=== PATIENT | male | born 1955 | race Caucasian/White ===

== ENCOUNTER 2017-07-01 07:00 | Day surgery (SDC) | payer MEDICAID ==
[2017-06-29 08:26] VITALS: BMI 29.9
[~2017-07-01 07:00] MED LIST: LACTATED RINGERS 1,000 ML IV SCH; MOXIFLOXACIN HCL 0.5% DROPS 3 ML BTL OP ONE; TETRACAINE 0.5% OPHTH (PF) DROPS 4 ML BTL OP ONE; TIMOLOL 0.5% OPHTH DROPS 5 ML BTL OP ONE
[2017-07-01] MEDS: CYCLOPENTOLATE 1% OPHTH SOLN 2 ML BTL OP ONE ×3 (08:02→08:15)
[2017-07-01 08:04] VITALS: TEMP 97.7
[2017-07-01] MEDS: PHENYLEPHRINE 2.5% OPHTH DRP 2ML OP NR ×3 (08:05→08:19)
[2017-07-01] MEDS ORDERED: LIDOCAINE 1% 20 ML VIAL (10MG/ML) FOR IV START INTRADERMA ONE (08:16)
[2017-07-01] MEDS ORDERED: fentaNYL (PF) 50 MCG/ML 2 ML AMP ONE (09:02)
[2017-07-01] MEDS ORDERED: MIDAZOLAM 2 MG/2 ML VIAL ONE (09:02)
[2017-07-01] MEDS ORDERED: BALANCED SALT IRRIG SOLN COMB2 15 ML IRRIG.SOLN INTRAOCULA ONE (09:03)
[2017-07-01] MEDS ORDERED: LIDOCAINE 1% (PF) 10MG/ML VIAL MISCELLANE ONE (09:04)
[2017-07-01] MEDS ORDERED: DUOVISC KIT (GREEN BOX) INTRAOCULA ONE (09:04)
[2017-07-01] MEDS ORDERED: EPINEPHrine (PF) 0.3 ML in BALANCED SALT IRRIG SOLN COMB2 500 ML IRRIGATION ONE (09:08)
[2017-07-01] MEDS ORDERED: EPINEPHrine (PF) 1 MG/ML AMP MISCELLANE ONE (09:16)
--- NOTE | 2017-07-01 09:41 | P.OP ---
Date of Procedure: 07/01/17 Preoperative Diagnosis: PXS & 1+NS & glc moderate Postoperative Diagnosis: same Procedure(s) Performed: iStent implant and PIOL, OS Implants: iStent [id number] & PCB00 19.00 Anesthesia: MAC Surgeon: Ayo Flores Estimated Blood Loss (ml): 0 Pathology: none sent Condition: stable Disposition: same day Indications for Procedure: PXS glaucoma Operative Findings: no complications
[2017-07-01 10:33] VITALS: BP 103/61; PULSE 58; RESP 18
--- NOTE | 2017-07-01 14:30 | OP ---
OPERATIVE REPORT DATE OF SURGERY: 07/01/2017. PROCEDURE: Phacoemulsification of cataract and intraocular lens implant of the left eye with eye stent implantation and capsular tension implantation. PREOPERATIVE DIAGNOSES: 1. Pseudoexfoliation glaucoma, moderate stage. 2. Nuclear sclerosis. POSTOPERATIVE DIAGNOSES: 1. Pseudoexfoliation glaucoma, moderate stage. 2. Nuclear sclerosis. SURGEON: Dr. Ayo Flores. ANESTHESIA: Topical. ESTIMATED BLOOD LOSS: None. SPECIMEN: None. NARRATIVE: After obtaining the appropriate consent, the patient was brought to the Operating Room. There he was placed on cardiac monitoring, prepped and draped in the usual sterile manner. He was approached from his left temporal side and at the 5 o'clock position, an MVR blade was used to create a paracentesis port. Through this opening 1% Xylocaine MPF 50/50 mix with balanced salt solution was injected into the anterior chamber. This was followed by stabilization of the anterior chamber with Viscoat. Additionally, a small amount was placed on the patient's cornea. At the 3 o'clock position, a 2.5 mm keratome was used to create a self-sealing corneal flap incision in a Langerman's fashion. The patient was then rotated approximately 45 degrees to his right and asked to look in the general direction as if he were looking straight ahead. A gonal prism was placed on the eye and the trabecular meshwork was identified. An eye stent identified as model GTS 100 mL was passed across the anterior chamber and placed into the trabecular meshwork without difficulty. Small amount of blood was refluxed through the stent device itself. Additional viscoelastic was used to kind of clear the area to confirm proper placement of the tube. The patient was then rotated back into the normal supine position. Due to the lack of appropriate dilation, a Malyugin balloon ring of 7 mm was inserted into the patient's eye and secured to the patient's iris. Once this was accomplished, a cystotome was used to begin a continuous tear capsulorrhexis which was completed using the Utrata forceps. Hydrodissection and hydrodelineation lens was accomplished with balanced salt solution. Phacoemulsification lens utilizing phaco chop was accomplished in 9.11 seconds at 7% power. Additional Xylocaine MPF was instilled into the anterior chamber. This was followed by removal of the remaining cortex under irrigation and aspiration along with careful polishing of the posterior capsule in the capsule vacuum mode. Provisc was then used to stabilize the capsular bag and a 13 mm capsular tension ring, model [id number] was then advanced in the capsular bag at the equator of the capsule and placed without difficulty. This was followed by insertion of an SHON PCP 00 19.0 diopter posterior chamber intraocular lens into the capsular bag without difficulty. The Malyugin ring was disinserted and removed from the anterior chamber. Irrigation and aspiration was used to remove the viscoelastic from in and around the intra-ocular lens as well as the rest of the anterior chamber. The eye was brought to normal intraocular pressure through the paracentesis port with balanced salt solution. There was a concern with some additional efflux of aqueous from the anterior chamber, therefore, reassure was used on the incision to secure watertight integrity. He then received 2 drops of 0.5% timolol followed by 2 drops of moxifloxacin, was then lightly patched and shielded in the usual manner. There were no complications from the procedure. He tolerated the procedure well. He was returned to outpatient recovery in good condition. MMODL / IJN: [id number] /
== END 2017-07-01 10:50 | disposition home or self-care (01) ==
LOC: OR 07:00
PROVIDERS: ATTEND Ophthalmology
DX: H25.12 Age-related nuclear cataract, left eye (principal); H40.143 Capsular glaucoma with pseudoexfoliation of lens, bilateral; H40.053 Ocular hypertension, bilateral; I10 Essential (primary) hypertension; E78.5 Hyperlipidemia, unspecified; N20.0 Calculus of kidney; Z79.899 Other long term (current) drug therapy; Z88.1 Allergy status to other antibiotic agents; Z87.891 Personal history of nicotine dependence
CPT/HCPCS: 0191T; 66982

== ENCOUNTER 2017-08-12 07:00 | Day surgery (SDC) | payer MEDICAID ==
[2017-08-05 14:31] VITALS: BMI 29.9
[~2017-08-12 07:00] MED LIST changes: -MOXIFLOXACIN HCL 0.5% DROPS 3 ML BTL OP ONE; -TIMOLOL 0.5% OPHTH DROPS 5 ML BTL OP ONE
[2017-08-12] MEDS: CYCLOPENTOLATE 1% OPHTH SOLN 2 ML BTL OP ONE ×3 (07:50→08:03)
[2017-08-12] MEDS: PHENYLEPHRINE 2.5% OPHTH DRP 2ML OP NR ×3 (07:53→08:09)
[2017-08-12 07:56] VITALS: RESP 16; TEMP 97
[2017-08-12] MEDS ORDERED: LIDOCAINE 1% 20 ML VIAL (10MG/ML) FOR IV START INTRADERMA ONE (08:06)
[2017-08-12] MEDS ORDERED: BALANCED SALT IRRIG SOLN COMB2 15 ML IRRIG.SOLN INTRAOCULA ONE ×2 (08:50→09:13)
[2017-08-12] MEDS: MOXIFLOXACIN HCL 0.5% DROPS 3 ML BTL OP ONE ×2 (08:51→09:13)
[2017-08-12] MEDS: TIMOLOL 0.5% OPHTH DROPS 5 ML BTL OP ONE ×2 (08:51→09:13)
[2017-08-12] MEDS ORDERED: LIDOCAINE 1% (PF) 10MG/ML VIAL SQ ONE ×2 (08:51→09:13)
[2017-08-12] MEDS ORDERED: DUOVISC KIT (GREEN BOX) INTRAOCULA ONE ×2 (08:51→09:13)
[2017-08-12] MEDS ORDERED: MIDAZOLAM 2 MG/2 ML VIAL ONE (08:58)
[2017-08-12] MEDS ORDERED: fentaNYL (PF) 50 MCG/ML 2 ML AMP ONE (08:58)
[2017-08-12] MEDS ORDERED: EPINEPHrine (PF) 0.3 ML in BALANCED SALT IRRIG SOLN COMB2 500 ML IRRIGATION ONE (08:59)
[2017-08-12] MEDS ORDERED: TETRACAINE 0.5% OPHTH (PF) DROPS 4 ML BTL RIGHT EYE ONE (09:09)
--- NOTE | 2017-08-12 09:40 | P.OP ---
Date of Procedure: 08/12/17 Preoperative Diagnosis: PXS & NS Postoperative Diagnosis: same Procedure(s) Performed: PIOL & iStent implantation with CTR implantation Implants: PCB00 18.00 & [id number] & STBLUS 13 Anesthesia: MAC Surgeon: Aoy Flores Estimated Blood Loss (ml): 0 Pathology: none sent Condition: stable Disposition: same day Indications for Procedure: blurry vision and PXS glaucoma moderate stage Operative Findings: No complications
[2017-08-12 10:06] VITALS: BP 150/81; PULSE 60
--- NOTE | 2017-08-12 20:47 | OP ---
OPERATIVE REPORT DATE OF SURGERY: August 12, 2017. PROCEDURE PERFORMED: Phacoemulsification of cataract and intraocular lens implant of the right eye with eye stent implantation of the right eye and capsular tension ring implantation of the right eye. 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 POSTOPERATIVE DIAGNOSES: Nuclear sclerosis and pseudo exfoliative syndrome with mild stage pseudoexfoliation glaucoma. SURGEON: Dr. Ayo Flores. ANESTHESIA: Topical. ESTIMATED BLOOD LOSS: None. SPECIMEN: Taken none. NARRATIVE: After obtaining the appropriate consent, the patient was brought to the operating room. There he was placed on cardiac monitoring, prepped and draped in the usual sterile manner. He was approached from his right temporal side and at the 11 o'clock position a 1.1 mm stab blade was used to create a paracentesis port. Through this opening, 1% Xylocaine MPF 50 50 mix with balanced salt solution was injected into the anterior chamber. This was followed by stabilization of the anterior chamber with Viscoat. A small amount of Viscoat was placed on the patient's cornea. At the 9 o'clock position a 2.5 mm keratome was used to create a self-sealing corneal flap incision in Langerman's fashion. The patient was then asked to rotate his head to the left approximately 45 degrees and to maintain his gaze in that general direction. A gonial prism was placed on the patient's cornea and the trabecular meshwork was easily identified. A Glaukos model TTS 100L stent was then placed into the nasal trabecular meshwork without difficulty. A small flash of blood was noted after implantation as expected. The patient was then rotated back to the normal supine position and at this time, it was appreciated that the patient's pupil was no longer properly dilated and was approximately 4 mm in size. Therefore, a 7 mm Malyugin ring was then inserted on the pupillary sphincter to maintain adequate dilation through the case. A cystotome was used to start a continuous tear capsulorrhexis which was then completed using the Utrata forceps. Hydrodissection and hydrodelineation of the lens was accomplished with balanced salt solution. Phacoemulsification lens utilizing phaco chop was accomplished in 8.98 seconds at 6% power. Additional Xylocaine MPF was instilled into the eye and remaining cortex was then removed with irrigation and aspiration along with careful polishing of the posterior capsule in capsule vacuum mode. Provisc was then used to stabilize the capsular bag and an SHON ST BL 1 3 US. capsular tension ring was then inserted into the capsular equate without any difficulty. Once this was placed, then an SHON PCB 00 18.0 diopter posterior chamber intraocular lens was then inserted into the capsular bag also without difficulty. The Malyugin ring was disinserted from the pupillary sphincter at this time, and the viscoelastic was then removed from the anterior chamber. The pupil had collapsed to approximately 3 mm in diameter. At the end of this point, there was no ability to clean posterior capsule and any viscoelastic that may have been contained in that area between the lens and the capsule. The eye was brought to normal intraocular pressure through the paracentesis port. The incisions were checked for watertight integrity. He then received 2 drops of 0.5% timolol followed by 2 drops of moxifloxacin. He was then lightly patched and shielded in the usual manner. There were no complications from the procedure. He tolerated the procedure well, was returned to outpatient recovery in good condition. MMODL / IJN: [id number] /
== END 2017-08-12 10:36 | disposition home or self-care (01) ==
LOC: OR 07:00
PROVIDERS: ATTEND Ophthalmology
DX: H25.11 Age-related nuclear cataract, right eye (principal); H40.1411 Capsular glaucoma with pseudoexfoliation of lens, right eye, mild stage; Z96.1 Presence of intraocular lens; I10 Essential (primary) hypertension; E78.5 Hyperlipidemia, unspecified; Z79.899 Other long term (current) drug therapy; Z88.1 Allergy status to other antibiotic agents; F17.220 Nicotine dependence, chewing tobacco, uncomplicated
CPT/HCPCS: 0191T; 66982

== ENCOUNTER → 2017-08-27 | Outpatient (CLI) | payer MEDICAID ==
--- NOTE | 2017-08-28 06:59 | US ---
EXAMINATION TYPE: US prostate transrectal DATE OF EXAM: 08/27/2017 COMPARISON: NONE CLINICAL HISTORY: R97.20 elevated psa levels. Elevated PSA This examination was performed using the transrectal probe. EXAM MEASUREMENTS: Gland Size: 5.3 x 4.3 x 5.4cm Volume: 65.8ml Predicted PSA: 7.9 Actual PSA (if available):2.6 Enlarged heterogeneous gland with calcifications within the central zone. Initial images show seminal vesicles appear within normal limits. Prostate gland is enlarged in size and heterogeneous in appearance with some scattered calcification, no worrisome nodule is present. IMPRESSION: Enlarged prostate consistent with BPH, no suspicious nodules are seen.
== END | disposition home or self-care (01) ==
LOC: RADUSMAIN 07:40
PROVIDERS: ATTEND Family Medicine
DX: N40.0 Benign prostatic hyperplasia without lower urinary tract symptoms (principal); R97.20 Elevated prostate specific antigen [PSA]
CPT/HCPCS: 76872

== ENCOUNTER → 2019-04-21 | Outpatient (CLI) | payer MEDICAID ==
--- NOTE | 2019-04-22 11:29 | ECHOF ---
Referral Reason:R01.1 Systolic murmur MEASUREMENTS -------- HEIGHT: 165.1 cm WEIGHT: 78.9 kg BP: 154/98 RVIDd: 3.3 cm (< 3.3) IVSd: 1.1 cm (0.6 - 1.1) LVIDd: 4.4 cm (3.9 - 5.3) LVPWd: 1.2 cm (0.6 - 1.1) IVSs: 1.6 cm LVIDs: 2.6 cm LVPWs: 1.5 cm LA Diam: 3.5 cm (2.7 - 3.8) LAESV Index (A-L): 21.95 ml/m Ao Diam: 2.9 cm (2.0 - 3.7) AV Cusp: 1.9 cm (1.5 - 2.6) MV EXCURSION: 16.920 mm (> 18.000) MV EF SLOPE: 103 mm/s (70 - 150) EPSS: 0.4 cm MV E Waldemar: 0.88 m/s MV DecT: 156 ms MV A Waldemar: 0.99 m/s MV E/A Ratio: 0.89 AV maxP.40 mmHg AV meanP.27 mmHg FINDINGS -------- Sinus rhythm. This was a technically adequate study. The left ventricular size is normal. There is borderline concentric left ventricular hypertrophy. Overall left ventricular systolic function is normal with, an EF between 60 - 65 %. The right ventricle is mildly enlarged. Normal LA size by volume 22+/-6 ml/m2. The right atrium is normal in size. Interatrial and interventricular septum intact. There is mild aortic valve sclerosis. There is mild aortic stenosis present. Peak/mean gradient a cross the Aortic Valve is 17.40mmHg / 7.27mmHg. Mild mitral annular calcification present. Mild mitral regurgitation is present. The tricuspid valve appears structurally normal. The pulmonic valve was not well visualized. The aortic root size is normal. Normal inferior vena cava with normal inspiratory collapse consistent with estimated right atrial pre ssure of 5 mmHg. There is no pericardial effusion. CONCLUSIONS -------- 1. Sinus rhythm. 2. This was a technically adequate study. 3. The left ventricular size is normal. 4. There is borderline concentric left ventricular hypertrophy. 5. Overall left ventricular systolic function is normal with, an EF between 60 - 65 %. 6. The right ventricle is mildly enlarged. 7. Normal LA size by volume 22+/-6 ml/m2. 8. The right atrium is normal in size. 9. Interatrial and interventricular septum intact. 10. There is mild aortic valve sclerosis. 11. There is mild aortic stenosis present. 12. Peak/mean gradient across the Aortic Valve is 17.40mmHg / 7.27mmHg. 13. Mild mitral annular calcification present. 14. Mild mitral regurgitation is present. 15. The tricuspid valve appears structurally normal. 16. The pulmonic valve was not well visualized. 17. The aortic root size is normal. 18. Normal inferior vena cava with normal inspiratory collapse consistent with estimated right atrial pressure of 5 mmHg. 19. There is no pericardial effusion. SOLUTION MIXER: Yue Reveles RDCS
== END | disposition home or self-care (01) ==
LOC: RADECHMAIN 12:54
PROVIDERS: ATTEND Family Medicine
DX: I35.8 Other nonrheumatic aortic valve disorders (principal); I35.0 Nonrheumatic aortic (valve) stenosis; I34.0 Nonrheumatic mitral (valve) insufficiency
CPT/HCPCS: 93306

== ENCOUNTER → 2019-06-07 | Outpatient (CLI) | payer MEDICAID, MEDICARE ==
--- NOTE | 2019-06-07 12:07 | ECHOS ---
STRESS ECHOCARDIOGRAM INDICATIONS: Hypertension. BASELINE HEART RATE: 86 BASELINE BLOOD PRESSURE: 150/98 MAXIMUM HEART RATE: 157 MAXIMUM BLOOD PRESSURE: 207/116 85% MPHR: 133 100% MPHR: 156 METS: 7.1 MAXIMUM STAGE REACHED: 2 TOTAL EXERCISE TIME: 6:00 CLINICAL INFORMATION: Baseline EKG revealed a sinus mechanism with isolated PACs. The patient walked on a standard Darvin protocol for 6 minutes, achieved a maximal heart rate of 157 beats per minute which is more than 85% of predicted maximal. Developed fatigue and shortness of breath, had hypertensive response. He did not have any angina. Resting pressure was 150/98. Peak pressure was 207/116. Resting heart rate was 86 beats per minute. EKG did not reveal any ST-segment changes to indicate ischemia. Isolated PVCs were seen throughout. As exercise progressed, the frequency of PVCs decreased. He did not have any symptoms of angina. By EKG criteria, this is a negative stress test with good exercise capacity with isolated ventricular ectopy without any runs of wide QRS tachycardia. No EKG changes were noted to suggest ischemia and patient did not have angina. Baseline echo images revealed normal wall motion wall thickening of all segments. At peak exercise there was good augmentation of left and wall motion wall thickening of all segments suggesting that there is no evidence of any stress-induced ischemia on this study. FINAL IMPRESSION: 1. Fair limited exercise capacity with the with a negative EKG with 6 minutes of exercise on a standard Darvin protocol. The patient had hypertensive response to exercise. Isolated PVCs were noted, but no ischemic changes. 2. Normal stress echocardiogram. MMODL / IJN: [id number] /
--- NOTE | 2019-06-07 15:17 | US ---
EXAMINATION TYPE: US carotid duplex BILAT DATE OF EXAM: 06/07/2019 COMPARISON: NONE CLINICAL HISTORY: R09.89 CAROID BILATERAL, I35.0 AORTIC STENOSIS, E11.9 TYPE 2. Patient states doctor heard a murmur. HTN controlled with meds. EXAM MEASUREMENTS: RIGHT: Peak Systolic Velocity (PSV) cm/sec ----- Right CCA: 79.0 ----- Right ICA: 159.4 ----- Right ECA: 82.7 ICA/CCA ratio: 2.0 RIGHT: End Diastole cm/sec ----- Right CCA: 29.6 ----- Right ICA: 4.4 ----- Right ECA: 16.7 LEFT: Peak Systolic Velocity (PSV) cm/sec ----- Left CCA: 69.9 ----- Left ICA: 97.8 ----- Left ECA: 95.3 ICA/CCA ratio: 1.4 LEFT: End Diastole cm/sec ----- Left CCA: 22.6 ----- Left ICA: 21.5 ----- Left ECA: 17.6 VERTEBRALS (direction of flow): Right Vertebral: Antegrade Left Vertebral: Antegrade Rhythm: Arrhythmia Bilateral thickened rascon. Plaque visualized in bilateral bulbs. Elevated right proximal ICA veloci ty. Right significant stenosis. Grayscale, color and spectral Doppler imaging performed of the carot id arteries. Waveform analysis shows peak systolic velocity to be elevated within the right internal carotid arter y, elevated internal carotid artery to common carotid artery ratio. There is loss of the systolic win laury, spectral broadening present. IMPRESSION: Hemodynamic significant stenosis of the proximal internal carotid artery on the right co rresponding to approximately 50-69% diameter reduction by Doppler criteria, an indirect measurement o f carotid stenosis Criteria for Assigning % of Stenosis / Diameter reduction (Estimation based on the indirect measurements of the internal carotid artery velocities (ICA PSV). 1. Normal (no stenosis)=ICA PSV < 125 cm/s: ratio < 2.0: ICA EDV<40 cm/s. 2. Less than 50% stenosis=ICA PSV < 125 cm/s: ratio < 2.0: ICA EDV<40 cm/s. 3. 50 to 69% stenosis=ICA PSV of 125 to 230 cm/s: ration 2.0 ? 4.0: ICA EDV 40-100 cm/s. 4. Greater than 70% stenosis to near occlusion= ICA PSV > 230 cm/s: ratio > 4.0: ICA EDV > 100 cm/s. 5. Near occlusion= ICA PSV velocities may be low or undetectable: variable ratio and ICA EDV. 6. Total occlusion=unable to detect flow.
== END | disposition home or self-care (01) ==
LOC: RADNMMAIN 09:48
PROVIDERS: ATTEND Internal Medicine Interventional Cardiology
DX: I65.21 Occlusion and stenosis of right carotid artery (principal); I49.3 Ventricular premature depolarization; I10 Essential (primary) hypertension; E11.9 Type 2 diabetes mellitus without complications
CPT/HCPCS: 93351; 93880

== ENCOUNTER 2020-08-05 11:13 | Emergency (ER) | payer MEDICARE, MEDICAID ==
[2020-08-05 11:24] VITALS: BP 155/87; PULSE 96; RESP 18; TEMP 98
--- NOTE | 2020-08-05 12:24 | ED ---
General Adult HPI - General Chief complaint: Back Pain/Injury Stated complaint: kidney stones Time Seen by Provider: 08/05/20 11:46 Source: patient Mode of arrival: ambulatory Limitations: no limitations - History of Present Illness Initial comments: Dictation was produced using [employer] dictation software. please excuse any grammatical, word or spelling errors. This patient was cared for during a federal and state declared state of emergency secondary to Covid 19 Chief Complaint: 65-year-old male with past medical history of diabetes, dyslipidemia hypertension presents to the emergency department for left-sided flank pain History of Present Illness: 65-year-old male presents to the emergency department for left-sided flank pain. Patient states last night started. He states initial onset was severe located to the left lower back and radiating to the left flank area. Patient is a history of kidney stones however his symptoms of kidney stones are usually on the right side. States that he did have some nausea and some chills. Denies any diarrhea or abdominal pain. Patient states that he was having symptoms at rest and with certain movements. States that there is no mitigating factors. The ROS documented in this emergency department record has been reviewed and confirmed by me. Those systems with pertinent positive or negative responses have been documented in the HPI. All other systems are other negative and/or noncontributory. PHYSICAL EXAM: General Impression: Alert and oriented x3, not in acute distress HEENT: Normocephalic atraumatic, extra-ocular movements intact, pupils equal and reactive to light bilaterally, mucous membranes moist. Cardiovascular: Heart regular rate and rhythm Chest: Able to complete full sentences, no retractions, no tachypnea Abdomen: abdomen soft, non-tender, non-distended, no organomegaly Musculoskeletal: Pulses present and equal in all extremities, no peripheral rober ma Motor: no focal deficits noted Neurological: CN II-XII grossly intact, no focal motor or sensory deficits noted Skin: Intact with no visualized rashes Psych: Normal affect and mood ED course: 65-year-old male presents emergency department for left-sided flank pain. Vital Signs upon arrival are within acceptable limits. Laboratory evaluation obtained. Mild leukocytosis of 11.8 likely secondary to stress. Metabolic panel is unremarkable. There is evidence of mild dehydration. Urinalysis shows 18 red blood cells. Computed tomography scan of the abdomen and pelvis without contrast shows a 3 mm calculus at the left ureteral orifice. There is colonic diverticulosis. There is some enlarged prostate. Patient clinical presentation consistent with recently passed nephrolithiasis. Patient will be discharged. - Related Data Home Medications Medication Instructions Recorded Confirmed Rosuvastatin Calcium 20 mg PO DAILY 06/29/17 08/05/20 Timolol 0.5% Ophth Soln [Timoptic 1 drop BOTH EYES BID 06/29/17 08/05/20 0.5% Ophth Soln] metFORMIN HCL [Glucophage Xr] 500 mg PO AC-SUPPER 08/28/17 08/05/20 Carboxymethylcellulose Sodium 1 drop BOTH EYES QID 08/05/20 08/05/20 [Refresh Tears] Cholecalciferol (Vitamin D3) 125 mcg PO DAILY 08/05/20 08/05/20 [Vitamin D3 (5000 Iu)] Losartan-Hctz 50-12.5 mg [Hyzaar 1 tab PO DAILY 08/05/20 08/05/20 50-12.5] Tamsulosin HCl [Flomax] 0.4 mg PO DAILY 08/05/20 08/05/20 Previous Rx's Medication Instructions Recorded HYDROcodone/APAP 5-325MG [Clifton 1 tab PO Q6HR PRN 3 Days #12 tab 08/05/20 5-325] Ondansetron Odt [Zofran Odt] 4 mg PO Q8HR PRN #12 tab 08/05/20 Allergies Allergy/AdvReac Type Severity Reaction Status Date / Time doxycycline calcium Allergy Rash/Hives Verified 08/05/20 12:26 [From Vibramycin] doxycycline hyclate Allergy Rash/Hives Verified 08/05/20 12:26 [From Vibramycin] doxycycline monohydrate Allergy Rash/Hives Verified 08/05/20 12:26 [From Vibramycin] Review of Systems ROS Statement: Those systems with pertinent positive or pertinent negative responses have been documented in the HPI. ROS Other: All systems not noted in ROS Statement are negative. Past Medical History Past Medical History: Diabetes Mellitus, Eye Disorder, Hyperlipidemia, Hypertension, Musculoskeletal Disorder Additional Past Medical History / Comment(s): bilat cataracts, bilat glaucoma PLANTAR FASCITIS RT FOOT., kidney stones History of Any Multi-Drug Resistant Organisms: None Reported Past Surgical History: No Surgical Hx Reported Additional Past Surgical History / Comment(s): colonoscopy,lt cataract Past Anesthesia/Blood Transfusion Reactions: No Reported Reaction Additional Past Anesthesia/Blood Transfusion Reaction / Comment(s): NO PREVIOUS ANESTHESIA. Past Psychological History: No Psychological Hx Reported Smoking Status: Never smoker Past Alcohol Use History: None Reported Past Drug Use History: Marijuana - Past Family History Mother Family Medical History: Cancer, Diabetes Mellitus Father Family Medical History: Cancer, Diabetes Mellitus Sister(s) Family Medical History: Cancer, Diabetes Mellitus Brother(s) Family Medical History: Cancer, Diabetes Mellitus General Exam Limitations: no limitations Course Vital Signs 08/05/20 11:21 Temperature 98.0 F Pulse Rate 96 Respiratory 18 Rate Blood Pressure 155/87 O2 Sat by Pulse 97 Oximetry Medical Decision Making - Lab Data Result diagrams: 08/05/20 12:21 08/05/20 12:21 Lab Results 08/05/20 08/05/20 08/05/20 Range/Units 12:21 12:21 12:21 WBC 11.8 H (3.8-10.6) k/uL RBC 5.10 (4.30-5.90) m/uL Hgb 14.9 (13.0-17.5) gm/dL Hct 43.2 (39.0-53.0) % MCV 84.7 (80.0-100.0) fL MCH 29.1 (25.0-35.0) pg MCHC 34.4 (31.0-37.0) g/dL RDW 13.2 (11.5-15.5) % Plt Count 186 (150-450) k/uL MPV 6.7 Neutrophils % 79 % Lymphocytes % 12 % Monocytes % 6 % Eosinophils % 1 % Basophils % 0 % Neutrophils # 9.4 H (1.3-7.7) k/uL Lymphocytes # 1.4 (1.0-4.8) k/uL Monocytes # 0.7 (0-1.0) k/uL Eosinophils # 0.1 (0-0.7) k/uL Basophils # 0.0 (0-0.2) k/uL Sodium 135 L (137-145) mmol/L Potassium 4.0 (3.5-5.1) mmol/L Chloride 100 (98-107) mmol/L Carbon Dioxide 27 (22-30) mmol/L Anion Gap 8 mmol/L BUN 27 H (9-20) mg/dL Creatinine 0.98 (0.66-1.25) mg/dL Est GFR (CKD-EPI)AfAm >90 (>60 ml/min/1.73 sqM) Est GFR (CKD-EPI)NonAf 81 (>60 ml/min/1.73 sqM) Glucose 141 H (74-99) mg/dL Calcium 9.7 (8.4-10.2) mg/dL Urine Color Yellow Urine Appearance Clear (Clear) Urine pH 5.5 (5.0-8.0) Ur Specific Gray 1.019 (1.001-1.035) Urine Protein Trace H (Negative) Urine Glucose (UA) Negative (Negative) Urine Ketones Trace H (Negative) Urine Blood Moderate H (Negative) Urine Nitrite Negative (Negative) Urine Bilirubin Negative (Negative) Urine Urobilinogen <2.0 (<2.0) mg/dL Ur Leukocyte Esterase Negative (Negative) Urine RBC 18 H (0-5) /hpf Urine WBC 1 (0-5) /hpf Ur Squamous Epith Cells <1 (0-4) /hpf Urine Mucus Rare H (None) /hpf Disposition Clinical Impression: Kidney stone Disposition: HOME SELF-CARE Condition: Fair Instructions (If sedation given, give patient instructions): Kidney Stones (ED) Prescriptions: HYDROcodone/APAP 5-325MG [Clifton 5-325] 1 tab PO Q6HR PRN 3 Days #12 tab PRN Reason: Severe Pain Ondansetron Odt [Zofran Odt] 4 mg PO Q8HR PRN #12 tab PRN Reason: Nausea Is patient prescribed a controlled substance at d/c from ED?: Yes If prescribed controlled substance>3 days was MAPS reviewed?: Prescribed <3 Days Referrals: Law Mejia MD [Primary Care Provider] - 1-2 days Time of Disposition: 13:50
[2020-08-05 12:25] LABS: Basophils % (A) 0 %; Eosinophils # (A) 0.1 k/uL (0-0.7); Eosinophils % (A) 1 %; HCT 43.2 % (39.0-53.0); HGB 14.9 gm/dL (13.0-17.5); Lymphocytes # (A) 1.4 k/uL (1.0-4.8); Lymphocytes % (A) 12 %; MCH 29.1 pg (25.0-35.0); MCHC 34.4 g/dL (31.0-37.0); MCV 84.7 fL (80.0-100.0); Mean Platelet Volume 6.7; Monocytes # (A) 0.7 k/uL (0-1.0); Monocytes % (A) 6 %; Neutrophils # (A) 9.4 k/uL (1.3-7.7); Neutrophils % (A) 79 %; Platelet Count 186 k/uL (150-450); RDW 13.2 % (11.5-15.5); WBC 11.8 k/uL (3.8-10.6)
[2020-08-05 12:36] LABS: African American GFR (CKD) >90 (>60 ml/min/1.73 sqM); Anion Gap 8 mmol/L; Blood Urea Nitrogen 27 mg/dL (9-20); Calcium 9.7 mg/dL (8.4-10.2); Carbon Dioxide 27 mmol/L (22-30); Chloride 100 mmol/L (98-107); Glucose 141 mg/dL (74-99); Non-African American GFR(CKD) 81 (>60 ml/min/1.73 sqM); Sodium 135 mmol/L (137-145)
[2020-08-05 12:39] LABS: Appearance,Urine Clear (Clear); Bilirubin,Urine Negative (Negative); Blood,Urine Moderate (Negative); Color,Urine Yellow; Glucose,Urine (UA) Negative (Negative); Ketones,Urine Trace (Negative); Leukocyte Esterase,Urine Negative (Negative); Mucus,Urine Rare /hpf; Nitrite,Urine Negative (Negative); PH, Urine 5.5 (5.0-8.0); Protein,Urine Trace (Negative); RBC,Urine 18 /hpf (0-5); Specific Gravity,Urine 1.019 (1.001-1.035); Squamous Epithelial Cell,Urine <1 /hpf (0-4); Urobilinogen,Urine <2.0 mg/dL (<2.0); WBC,Urine 1 /hpf (0-5)
--- NOTE | 2020-08-05 13:38 | CT ---
EXAMINATION TYPE: CT abdomen pelvis wo con DATE OF EXAM: 08/05/2020 COMPARISON: 11/23/2014 HISTORY: 65-year-old male Flank pain, hematuria, history of renal stones CT DLP: 643.5 mGycm. Automated exposure control for dose reduction was used. TECHNIQUE: Contiguous axial scanning of the abdomen and pelvis without IV contrast. Coronal and sagit seema reconstructions performed. FINDINGS: Heart normal size without pericardial effusion. Lung bases clear without pleural effusion. Tiny low-density lesion left hepatic dome measuring 6 mm is unchanged, likely tiny cyst. Gallbladder is borderline distended up to 3.8 cm wide, likely due to fasting state. Otherwise, noncontrast appearance of the liver, gallbladder, adrenal glands, right kidney, spleen, pa ncreas shows no gross anomaly. There is some asymmetric mild perinephric fat stranding on the left as well as mild pelvocaliectasis and asymmetric prominence to the left ureter. There is a 3 mm calcification at the left ureteral orifice. No dilated small bowel, free fluid, free air. No mesenteric or retroperitoneal lymphadenopathy. Normal appendix. Mild stool burden. Scattered left-sided colonic diverticulosis along the descending colon. No pericolic inflammatory change. Mild circumferential bladder wall thickening. Prostate gland enlargement 6.2 cm wide. No abnormal flu id collection in the pelvis or pelvic lymphadenopathy. Bones: Mild degenerative change of the hips. Advanced degenerative disc disease L4-L5 and L5-S1 with hypertrophic facet arthropathy lower lumbar spine. Disc osteophyte complex at L3-L4, may cause a mode rate spinal canal stenosis. IMPRESSION: 1. A 3 mm calculus at the left ureteral orifice with mild obstructive uropathy. 2. Scattered left-sided colonic diverticulosis without acute diverticulitis. 3. Prostatomegaly at 6.2 cm wide. Mild circumferential bladder wall thickening could reflect chronic bladder wall hypertrophy or cystitis. Clinically correlate.
== END 2020-08-05 14:04 | disposition home or self-care (01) ==
LOC: EC 11:13
DX: N20.0 Calculus of kidney (principal); E86.0 Dehydration; E78.5 Hyperlipidemia, unspecified; I10 Essential (primary) hypertension; E11.9 Type 2 diabetes mellitus without complications; Z79.899 Other long term (current) drug therapy; Z79.84 Long term (current) use of oral hypoglycemic drugs
CPT/HCPCS: 36415; 74176; 80048; 81001; 85025; 99284

== ENCOUNTER → 2020-12-28 | Outpatient (CLI) | payer MEDICAID, MEDICARE ==
--- NOTE | 2020-12-28 14:01 | ECHOF ---
Referral Reason:R00.2 palpitations MEASUREMENTS -------- HEIGHT: 165.1 cm WEIGHT: 83.9 kg BP: 118/65 RVIDd: 3.0 cm (< 3.3) IVSd: 1.2 cm (0.6 - 1.1) LVIDd: 3.7 cm (3.9 - 5.3) LVPWd: 1.2 cm (0.6 - 1.1) IVSs: 1.7 cm LVIDs: 2.3 cm LVPWs: 1.5 cm LA Diam: 3.4 cm (2.7 - 3.8) LAESV Index (A-L): 25.25 ml/m Ao Diam: 2.8 cm (2.0 - 3.7) AV Cusp: 1.9 cm (1.5 - 2.6) MV EXCURSION: 14.881 mm (> 18.000) MV EF SLOPE: 143 mm/s (70 - 150) EPSS: 0.4 cm MV E Waldemar: 0.87 m/s MV DecT: 174 ms MV A Waldemar: 0.88 m/s MV E/A Ratio: 0.99 FINDINGS -------- Sinus rhythm. This was a technically adequate study. The left ventricular size is normal. There is borderline concentric left ventricular hypertrophy. Overall left ventricular systolic function is normal with, an EF between 60 - 65 %. The right ventricle is normal in size. Normal LA size by volume 22+/-6 ml/m2. The right atrium is normal in size. Interatrial and interventricular septum intact. There is mild aortic valve sclerosis. Mild mitral annular calcification present. There is trace to mild mitral regurgitation. The tricuspid valve appears structurally normal. Unable to estimate RVSP due to inadequate TR jet s pectral doppler profile. Trace/mild (physiologic) pulmonic regurgitation. The aortic root size is normal. Normal inferior vena cava with normal inspiratory collapse consistent with estimated right atrial pre ssure of 5 mmHg. There is no pericardial effusion. CONCLUSIONS -------- 1. The left ventricular size is normal. 2. There is borderline concentric left ventricular hypertrophy. 3. Overall left ventricular systolic function is normal with, an EF between 60 - 65 %. 4. There is mild aortic valve sclerosis. 5. Mild mitral annular calcification present. 6. There is trace to mild mitral regurgitation. 7. Trace/mild (physiologic) pulmonic regurgitation. 8. There is no pericardial effusion. COURT INTERPRETER: Yue Reveles RDCS
== END | disposition home or self-care (01) ==
LOC: RADECHMAIN 10:52
PROVIDERS: ATTEND Family Medicine
DX: I51.7 Cardiomegaly (principal); I35.8 Other nonrheumatic aortic valve disorders; I25.10 Atherosclerotic heart disease of native coronary artery without angina pectoris; I34.0 Nonrheumatic mitral (valve) insufficiency; I37.1 Nonrheumatic pulmonary valve insufficiency
CPT/HCPCS: 93306

== ENCOUNTER → 2021-01-11 | Outpatient (CLI) | payer MEDICAID ==
--- NOTE | 2021-01-11 12:46 | P.STRESS ---
- Stress Test Note Stress Test Results/Findings: Exam Performed: EH stress test Exam Date: 01/11/21 Reason for Exam: Hypertension Height: 5 ft 5 in Weight: 81.647 kg Protocol: Darvin Stage: 4 Duration of Exercise: 09:25 Resting Heart Rate: 80 Resting Blood Pressure: 164/97 Maximum Achieved Heart Rate: 173 Maximum Achieved Blood Pressure: 223/87 85% PMHR: 131 100% PMHR: 154 METS: 10.9 Technologist Comment: Stress Test Results/Findings: Baseline heart rate 80 beats a minute, Baseline blood pressure 164/97 mmHg Baseline 12-lead EKG showed sinus rhythm normal TN narrow QRS no QRS fractionation Frequent PVCs of 2 different morphologies, one predominant morphology Patient exercised on a Darvin protocol for 9-1/2 minutes achieving a peak heart rate of 173 beats a minute. Hypertensive response to exercise, peak blood pressure 223/87 mmHg There was suppression of PVCs with exercise Reappearance of PVCs at recovery There was no ECG evidence for ischemia no nonsustained ventricular tachycardia noted Hypertensive response to exercise Good exercise capacity on a Darvin protocol
--- NOTE | 2021-01-15 16:35 | EST ---
Stress Test Results/Findings: Exam Performed: stress test Exam Date: 01/11/21 Reason for Exam: Hypertension Height: 5 ft 5 in Weight: 81.647 kg Protocol: Darvin Stage: 4 Duration of Exercise: 09:25 Resting Heart Rate: 80 Resting Blood Pressure: 164/97 Maximum Achieved Heart Rate: 173 Maximum Achieved Blood Pressure: 223/87 85% PMHR: 131 100% PMHR: 154 METS: 10.9 Technologist Comment: Stress Test Results/Findings: Baseline heart rate 80 beats a minute, Baseline blood pressure 164/97 mmHg Baseline 12-lead EKG showed sinus rhythm normal IN narrow QRS no QRS fractionation Frequent PVCs of 2 different morphologies, one predominant morphology Patient exercised on a Darvin protocol for 9-1/2 minutes achieving a peak heart rate of 173 beats a minute. Hypertensive response to exercise, peak blood pressure 223/87 mmHg There was suppression of PVCs with exercise Reappearance of PVCs at recovery There was no ECG evidence for ischemia no nonsustained ventricular tachycardia noted Hypertensive response to exercise Good exercise capacity on a Darvin protocol MTDD
== END | disposition home or self-care (01) ==
LOC: RADNMMAIN 10:27
PROVIDERS: ATTEND Family Medicine
DX: R00.2 Palpitations (principal)
CPT/HCPCS: 93017

== ENCOUNTER 2021-08-21 11:55 | Day surgery (SDC) | payer MEDICAID ==
[2021-08-19 15:17] VITALS: BMI 30.9
[~2021-08-21 11:55] MED LIST changes: +ATROPINE OPHTH SOLN 1% 5ML BTL OPHTHALMIC PRN; +DEXAMETHASONE SOD PHOSPHATE 4 MG/ML 1 ML VIAL IV ONE; +HYDROmorphone 0.5 MG/0.5 ML SYRINGE IVP PRN; +MOXIFLOXACIN HCL 0.5% DROPS 3 ML BTL OP PRN; +ONDANSETRON 4 MG/2 ML VIAL IVP ONE; -TETRACAINE 0.5% OPHTH (PF) DROPS 4 ML BTL OP ONE; +TETRACAINE 0.5% OPHTH (PF) DROPS 4 ML BTL OP PRN; +mitoMYcin for Eyes 0.06 MG, EMPTY SYRINGE 1 SYR OP PRN
[2021-08-21] MEDS: PILOCARPINE 2% OPHTH DROPS 15 ML BTL OP PRN ×3 (13:00→13:15)
[2021-08-21 13:14] LABS: Glucose,Whole Blood 106 mg/dL (75-99)
[2021-08-21 13:16] VITALS: RESP 16; TEMP 97.7
[2021-08-21] MEDS ORDERED: MIDAZOLAM 2 MG/2 ML VIAL ONE (13:49)
[2021-08-21] MEDS ORDERED: fentaNYL (PF) 50 MCG/ML 2 ML AMP ONE (13:49)
[2021-08-21] MEDS ORDERED: BALANCED SALT IRRIG SOLN COMB2 15 ML IRRIG.SOLN IRRIGATION ONE (14:40)
[2021-08-21] MEDS ORDERED: LIDOCAINE 1%-EPI 1:100,000 20 ML VIAL SQ ONE (14:41)
[2021-08-21] MEDS ORDERED: LIDOCAINE 2%-EPI 1:100,000 20 ML VIAL SQ ONE (14:46)
--- NOTE | 2021-08-21 15:30 | P.OP ---
Date of Procedure: 08/21/21 Preoperative Diagnosis: POAG severe Postoperative Diagnosis: same Procedure(s) Performed: shunt with MMC Implants: express shunt P-50 Anesthesia: MAC Surgeon: Ayo Flores Pathology: none sent Condition: stable Disposition: same day Indications for Procedure: glaucoma control Operative Findings: no complications
[2021-08-21 15:58] VITALS: BP 106/70; PULSE 67
--- NOTE | 2021-08-21 22:10 | OP ---
OPERATIVE REPORT DATE OF SURGERY: 08/21/2021. PROCEDURE: Ex-Press shunt implantation with mitomycin. PREOPERATIVE DURE DIAGNOSIS: Primary open-angle glaucoma, severe stage. POSTOPERATIVE DIAGNOSIS: Primary open-angle glaucoma, severe stage. SURGEON: Dr. Ayo Flores. ANESTHESIA: Topical. ESTIMATED BLOOD LOSS: Less than 5 mL. SPECIMEN TAKEN: None. NARRATIVE: After obtaining the appropriate consent, the patient was brought to the operating room. There he was placed under cardiac monitoring, prepped and draped in the usual sterile manner. He was approached from the 12 o'clock position, and at the superior limbus of the cornea, a traction suture with 6-0 silk was placed through the corneal limbus and secured to the drape, maintaining the eye in a down-gaze fashion. At the 2 o'clock position a small conjunctival incision was created with Mare scissors. Through this opening, the Mare scissors were bluntly dissected down to bare sclera. Two percent lidocaine with epinephrine on a 25-gauge irrigation cannula was placed through this opening, and the superior portion of the sub-Tenon's space was irrigated copiously with lidocaine and epinephrine solution. Once this was accomplished, a superior limbal peritomy to about 11 o'clock was performed using the Mare scissors. The sub- Tenon's space was bluntly dissected from between 10 o'clock and 2 o'clock with the Mare scissors following as far posteriorly as feasible through all areas of the superior conjunctival sub-Tenon's space. Hemostasis was controlled using wet- field cautery, and a Barraquer caliper set to 3 mm was used to outline an area of 3 x 3 mm square at the corneal limbus. The outline of this area was further enhanced with the wet-field cautery. A partial-thickness scleral flap was then created with the crescent blade, which was advanced toward the corneal limbus. Once the pocket was created, Mare scissors were then used to create the edges of each of the pocket and which then created a flap of scleral tissue. At this stage, mitomycin 0.2 mg% was placed underneath the scleral flap, and all was held in place with conjunctiva brought over the superior limbus. This solution was left in contact with the eye for about 3 minutes. All instruments contaminated with mitomycin were removed from the field as well as the sponge with the medication, and the area was copiously irrigated with balanced salt solution. A 27-gauge hypodermic needle was bent to permit its use as a trocar to create a pathway into the anterior chamber parallel to the iris from the apex of the scleral flap. Once this was created, an Ex-Press shunt model P50 was then advanced through the previously placed opening into the anterior chamber. Confirmation of aqueous was confirmed using Weck-Marry sponges. The partial-thickness scleral flap was then laid back in its bed, and using two 10-0 nylon sutures, each side of the scleral flap was secured back to the bed. Confirmation once again that aqueous was still percolating through this area was accomplished with Weck-Marry sponges. Conjunctiva then was easily brought back over the superior limbus of the cornea, and two single 8-0 Vicryl sutures were used to maintain approximation to the superior limbus and watertight closure, particularly of the temporal conjunctival incision. Fluorescein was used to confirm watertight integrity and the superior limbal traction suture was removed from the patient's eye. Schiotz tonometry performed at the beginning of the case demonstrated a pressure of approximately 15 mm using both 5.5 as well as 7.5 weights. At the end of the case, the intraocular pressure of the eye was definitively zero with a 5.5 mm weight on the tonometer. The patient then received two drops of moxifloxacin and two drops of 1% atropine. The eye was then lightly patched and shielded at the end of the case and he was returned to Recovery in good condition. There were no complications from the procedure and he tolerated the procedure well. MMBJ / LANDEN: [id number] / YECENIA
== END 2021-08-21 16:05 | disposition home or self-care (01) ==
LOC: OR 11:55
PROVIDERS: ATTEND Ophthalmology
DX: H40.1123 Primary open-angle glaucoma, left eye, severe stage (principal); H40.053 Ocular hypertension, bilateral; H40.143 Capsular glaucoma with pseudoexfoliation of lens, bilateral; H00.026 Hordeolum internum left eye, unspecified eyelid; H00.023 Hordeolum internum right eye, unspecified eyelid; H52.13 Myopia, bilateral; H52.4 Presbyopia; H52.223 Regular astigmatism, bilateral; E78.5 Hyperlipidemia, unspecified; E11.9 Type 2 diabetes mellitus without complications; Z96.1 Presence of intraocular lens; Z88.1 Allergy status to other antibiotic agents; Z79.899 Other long term (current) drug therapy; Z79.84 Long term (current) use of oral hypoglycemic drugs; Z83.3 Family history of diabetes mellitus; Z82.49 Family history of ischemic heart disease and other diseases of the circulatory system; Z83.518 Family history of other specified eye disorder
CPT/HCPCS: 66183; C1783; J2250; J3010

== ENCOUNTER 2021-09-25 16:57 | Day surgery (SDC) | payer MEDICAID ==
[2021-09-24 11:18] VITALS: BMI 30.2
[~2021-09-25 16:57] MED LIST changes: -ATROPINE OPHTH SOLN 1% 5ML BTL OPHTHALMIC PRN; -DEXAMETHASONE SOD PHOSPHATE 4 MG/ML 1 ML VIAL IV ONE; -HYDROmorphone 0.5 MG/0.5 ML SYRINGE IVP PRN; -LACTATED RINGERS 1,000 ML IV SCH; +MIDAZOLAM 2 MG/2 ML VIAL ONE; -ONDANSETRON 4 MG/2 ML VIAL IVP ONE; +fentaNYL (PF) 50 MCG/ML 2 ML AMP ONE; -mitoMYcin for Eyes 0.06 MG, EMPTY SYRINGE 1 SYR OP PRN
[2021-09-25] MEDS ORDERED: LACTATED RINGERS 1,000 ML IV ONE (17:02)
[2021-09-25 17:06] VITALS: TEMP 97
[2021-09-25 17:14] LABS: Glucose,Whole Blood 103 mg/dL (75-99)
[2021-09-25] MEDS ORDERED: IV FLUID CONTINUATION 1,000 ML IV ONE (19:39)
[2021-09-25] MEDS ORDERED: BALANCED SALT IRRIG SOLN COMB2 15 ML IRRIG.SOLN IRRIGATION ONE (19:51)
[2021-09-25] MEDS ORDERED: LIDOCAINE 2%-EPI 1:100,000 20 ML VIAL SQ ONE (19:52)
--- NOTE | 2021-09-25 20:03 | P.OP ---
Date of Procedure: 09/25/21 Preoperative Diagnosis: bleb failing Postoperative Diagnosis: same Procedure(s) Performed: bleb needling Implants: none Anesthesia: MAC Surgeon: Ayo Flores Pathology: none sent Condition: stable Disposition: same day Indications for Procedure: glaucoma control Operative Findings: no complications
[2021-09-25 20:28] VITALS: RESP 16
[2021-09-25 20:59] VITALS: BP 132/76; PULSE 75
--- NOTE | 2021-09-25 21:31 | OP ---
OPERATIVE REPORT DATE OF SURGERY: 09/25/2021. PROCEDURE: Bleb needling of the left eye. PREOPERATIVE DIAGNOSIS: Failing glaucoma filtration surgery. POSTOPERATIVE DIAGNOSIS: Failing glaucoma filtration surgery. SURGEON: Dr. Ayo Flores. ANESTHESIA: Monitored Anesthesia Care. ESTIMATED BLOOD LOSS: Less than 5 mL. SPECIMEN TAKEN: None. NARRATIVE: Approximately 4 weeks ago, the patient underwent shunt implantation and filtering bleb with mitomycin. He began to demonstrate significant problems with maintenance of good glaucoma control. He was returned to the operating room today to release any developing adhesions that were inhibiting outflow of the aqueous from the anterior chamber in the eye. A 6-0 silk suture was used as a traction through the superior limbus of the cornea, and superiorly as far posteriorly as possible a 25-gauge inch and a half hypodermic needle was used to Z track into the Sub-Tenon's tissue in this particular area. The area was infiltrated with 2% lidocaine with epinephrine and balanced-salt solution in a 50:50 mix, and gradually increasing hydraulic pressure was applied to the area where the needle was present to expand the tissue. The needle was also then advanced over the area through the sclerotomy where there seemed to be the greatest release of pressure from within the anterior chamber during the process. The needle was removed from the eye. The patient then received two drops of 0.5% moxifloxacin, was then lightly patched and shielded in the usual manner. There were no complications from the procedure. He tolerated the procedure well and was returned to Outpatient Recovery in good condition. MMODL / IJN: [id number] /
== END 2021-09-25 20:58 | disposition home or self-care (01) ==
LOC: OR 16:57
PROVIDERS: ATTEND Ophthalmology
DX: Z98.83 Filtering (vitreous) bleb after glaucoma surgery status (principal)
CPT/HCPCS: 66250; J2250; J3010

== ENCOUNTER → 2022-02-03 | Outpatient (CLI) | payer MEDICAID ==
[2022-02-03 14:48] LABS: Chol/HDL Ratio 3.54 Ratio; Creatine Kinase 95 U/L (35-257); LDL Cholesterol,Calculated 52.9 mg/dL (0.0-131.0)
== END | disposition home or self-care (01) ==
LOC: LABWHC1 09:22
PROVIDERS: ATTEND Family Medicine
DX: E78.2 Mixed hyperlipidemia (principal)
CPT/HCPCS: 36415; 80061; 82550; 86141

== ENCOUNTER → 2022-02-24 | Outpatient (CLI) | payer MEDICAID ==
--- NOTE | 2022-02-24 12:03 | US ---
EXAMINATION TYPE: US carotid duplex BILAT DATE OF EXAM: 02/24/2022 COMPARISON: 2019 CLINICAL HISTORY: I65.21 occ stenosis right carotid artery. TECHNIQUE: Carotid duplex ultrasound examination. Indirect Doppler criteria was utilized. FINDINGS: EXAM MEASUREMENTS: RIGHT: Peak Systolic Velocity (PSV) cm/sec ----- Right CCA: 89.0 ----- Right ICA: 163.0 ----- Right ECA: 69.9 ICA/CCA ratio: 1.8 RIGHT: End Diastole cm/sec ----- Right CCA: 26.6 ----- Right ICA: 47.2 ----- Right ECA: 13.8 LEFT: Peak Systolic Velocity (PSV) cm/sec ----- Left CCA: 113.0 ----- Left ICA: 121.0 ----- Left ECA: 79.8 ICA/CCA ratio: 1.1 LEFT: End Diastole cm/sec ----- Left CCA: 34.3 ----- Left ICA: 42.7 ----- Left ECA: 16.0 VERTEBRALS (direction of flow): Right Vertebral: Antegrade Left Vertebral: Antegrade Rhythm: Normal Elevated velocities - right proximal and mid ICA No significant stenosis IMPRESSION: Less than 50% stenosis of the bilateral carotid bifurcations. Criteria for Assigning % of Stenosis / Diameter reduction (Estimation based on the indirect measurements of the internal carotid artery velocities (ICA PSV). 1. Normal (no stenosis)=ICA PSV < 125 cm/s: ratio < 2.0: ICA EDV<40 cm/s. 2. Less than 50% stenosis=ICA PSV < 125 cm/s: ratio < 2.0: ICA EDV<40 cm/s. 3. 50 to 69% stenosis=ICA PSV of 125 to 230 cm/s: ration 2.0 ? 4.0: ICA EDV 40-100 cm/s. 4. Greater than 70% stenosis to near occlusion= ICA PSV > 230 cm/s: ratio > 4.0: ICA EDV > 100 cm/s. 5. Near occlusion= ICA PSV velocities may be low or undetectable: variable ratio and ICA EDV. 6. Total occlusion=unable to detect flow.
== END | disposition home or self-care (01) ==
LOC: RADUSWWP 10:36
PROVIDERS: ATTEND Family Medicine
DX: I65.21 Occlusion and stenosis of right carotid artery (principal)
CPT/HCPCS: 93880

== ENCOUNTER → 2023-02-26 | Outpatient (CLI) | payer MEDICARE, OTHER ==
--- NOTE | 2023-02-26 11:38 | US ---
EXAMINATION TYPE: US carotid duplex BILAT DATE OF EXAM: 02/26/2023 COMPARISON: 02/24/2022 CLINICAL INDICATION: Male, 60 years old with history of dizziness; Follow up TECHNIQUE: Carotid duplex ultrasound examination. Indirect Doppler criteria was utilized. FINDINGS: EXAM MEASUREMENTS: RIGHT: Peak Systolic Velocity (PSV) cm/sec ----- Right CCA: 83.7 ----- Right ICA: 208.2 ----- Right ECA: 123.7 ICA/CCA ratio: 2.5 RIGHT: End Diastole cm/sec ----- Right CCA: 32.8 ----- Right ICA: 82.7 ----- Right ECA: 30.0 LEFT: Peak Systolic Velocity (PSV) cm/sec ----- Left CCA: 94.7 ----- Left ICA: 143.1 ----- Left ECA: 91.4 ICA/CCA ratio: 1.5 LEFT: End Diastole cm/sec ----- Left CCA: 55.9 ----- Left ICA: 43.0 ----- Left ECA: 25.2 VERTEBRALS (direction of flow): Right Vertebral: Antegrade Left Vertebral: Antegrade Rhythm: Normal GERMAN INSTRUCTOR NOTES: bilateral plaque at carotid bifurcation/bulb, 50 to 69% stenosis bilateral proxima l ICAs IMPRESSION: 50-69% stenosis of the bilateral carotid bifurcations by peak systolic velocity. Criteria for Assigning % of Stenosis / Diameter reduction (Estimation based on the indirect measurements of the internal carotid artery velocities (ICA PSV). 1. Normal (no stenosis)=ICA PSV < 125 cm/s: ratio < 2.0: ICA EDV<40 cm/s. 2. Less than 50% stenosis=ICA PSV < 125 cm/s: ratio < 2.0: ICA EDV<40 cm/s. 3. 50 to 69% stenosis=ICA PSV of 125 to 230 cm/s: ration 2.0 ? 4.0: ICA EDV 40-100 cm/s. 4. Greater than 70% stenosis to near occlusion= ICA PSV > 230 cm/s: ratio > 4.0: ICA EDV > 100 cm/s. 5. Near occlusion= ICA PSV velocities may be low or undetectable: variable ratio and ICA EDV. 6. Total occlusion=unable to detect flow.
== END | disposition home or self-care (01) ==
LOC: RADUSWWP 10:44
PROVIDERS: ATTEND Family Medicine
DX: I65.23 Occlusion and stenosis of bilateral carotid arteries (principal)
CPT/HCPCS: 93880

== ENCOUNTER → 2023-03-23 | Outpatient (CLI) | payer MEDICARE, OTHER ==
--- NOTE | 2023-03-23 15:30 | US ---
EXAMINATION TYPE: US kidneys/renal and bladder DATE OF EXAM: 03/23/2023 COMPARISON: NONE CLINICAL INDICATION: Male, 67 years old with history of N18.31 CHRONIC KIDNEY DISEASE, STAGE 3A; CKD, abnormal labs EXAM MEASUREMENTS: Right Kidney: 9.9x5.6x5.4 cm Left Kidney: 10.2x5.8x4.3 cm Right Kidney: No hydronephrosis or masses seen Left Kidney: No hydronephrosis or masses seen Bladder: wnl Bilateral Jets seen: Yes There is no evidence for hydronephrosis at this point in time. No nephrolithiasis is seen. No memo s are identified. The urinary bladder is anechoic. Bilateral ureteral jets are seen. patient has known enlarged prostate IMPRESSION: Prostate gland enlargement. Otherwise unremarkable study.
== END | disposition home or self-care (01) ==
LOC: RADUSWWP 14:41
PROVIDERS: ATTEND Family Medicine
DX: N18.31 Chronic kidney disease, stage 3a (principal); N40.0 Benign prostatic hyperplasia without lower urinary tract symptoms; R79.9 Abnormal finding of blood chemistry, unspecified
CPT/HCPCS: 76770

== ENCOUNTER → 2024-03-07 | Outpatient (CLI) | payer MEDICARE ==
[2024-03-07 10:39] LABS: African American GFR (CKD) 87 (>60 ml/min/1.73 sqM); Blood Urea Nitrogen 24 mg/dL (9-20); Non-African American GFR(CKD) 75 (>60 ml/min/1.73 sqM)
--- NOTE | 2024-03-07 11:45 | CT ---
EXAMINATION TYPE: CT angio neck CT DLP: 373.70 mGycm, Automated exposure control for dose reduction was used. DATE OF EXAM: 03/07/2024 11:33 AM COMPARISON: Carotid ultrasound 02/26/2023, 02/24/2022, 06/07/2019. CLINICAL INDICATION:Male, 68 years old with history of I65.23 CAROTID STENOSIS; PHH, Carotid stenosis TECHNIQUE: Axially acquired helical CT angiogram of the neck was obtained with contrast utilizing 65 cc of Isovue-370 administered intravenously. Axial images are supplemented with 3D reconstructions wh ich were post-processed at an independent workstation. NASCET criteria used. FINDINGS: CTA NECK: Right Carotid System: The common carotid artery and external carotid artery are patent. Moderate to severe calcified plaque involving the proximal internal carotid artery with approximately 90% stenosis. The remaining porti ons of the internal carotid artery demonstrate normal size without significant narrowing. Left Carotid System: The common carotid artery and external carotid artery are patent. Moderate to severe calcified plaque involving the proximal internal carotid artery with approximately 70 % stenosis. The remaining porti ons of the internal carotid artery demonstrate normal size without significant narrowing. Vertebral arteries are patent without evidence hemodynamically significant stenosis. Right vertebral artery is dominant. There is a three-vessel aortic arch. The origins of the great vessels are patent. No evidence of hemo dynamically significant stenosis. Bilateral aphakia with a 3 mm radiopaque foreign body within the region of the left anterior thigh ch floyd. Bilateral palatine tonsillitis. IMPRESSION: Moderate to severe atherosclerotic plaque involving the proximal internal carotid arteries at their o rigins. Resulting in approximately 90% stenosis of the proximal right internal carotid artery and donnell roximately 70% stenosis of the proximal left internal carotid artery. [facility], , 03/07/2024 11:42 AM
== END | disposition home or self-care (01) ==
LOC: RADCTMAIN 09:54
PROVIDERS: ATTEND Surgery
DX: I65.23 Occlusion and stenosis of bilateral carotid arteries (principal)
CPT/HCPCS: 82565; 84520; 70498; 36415; Q9967

== ENCOUNTER → 2024-03-24 | Outpatient (CLI) | payer MEDICARE ==
--- NOTE | 2024-03-25 09:56 | CA ---
Transthoracic Echo Report Name: Elio Villasenor Age: 68 Gender: M : 1955 Exam Date: 03/24/2024 15:41 Exam Location: [facility] Ht (in): 65 Wt (lb): 180 Ordering Physician: Law Mejia MD Attending/Referring Phys: Delta Villasenor MD ([id number]) [employer]ger Yue Reveles RDCS Procedure CPT: Indications: I35.0 nonrheumatic aortic valve stenosis Cardiac Hx: Technical Quality: Fair Contrast 1: Total Dose (mL): Contrast 2: Total Dose (mL): MEASUREMENTS (Male / Female) Normal Values 2D ECHO LV Diastolic Diameter PLAX 4.9 cm 4.2 - 5.9 / 3.9 - 5.3 cm LV Systolic Diameter PLAX 3.2 cm IVS Diastolic Thickness 1.3 cm 0.6 - 1.0 / 0.6 - 0.9 cm LVPW Diastolic Thickness 1.2 cm 0.6 - 1.0 / 0.6 - 0.9 cm LV Relative Wall Thickness 0.5 RV Internal Dim ED PLAX 3.7 cm LVOT Diameter 2.3 cm LA Systolic Diameter LX 3.6 cm 3.0 - 4.0 / 2.7 - 3.8 cm LV Diastolic Volume MOD BP 77.9 cm??? 67 - 155 / 56 - 104 cm??? LV Systolic Volume MOD BP 37.1 cm??? 22 - 58 / 19 - 49 cm??? LV Ejection Fraction MOD BP 52.5 % >= 55 % LV Cardiac Index MOD BP 1793.4 cm???/min???m??? LV Diastolic Volume MOD 4C 79.3 cm??? LV Systolic Volume MOD 4C 40.4 cm??? LV Ejection Fraction MOD 4C 49.1 % LV Cardiac Index MOD 4C 1707.4 cm???/min???m??? LV Diastolic Length 4C 6.6 cm LV Systolic Length 4C 6.4 cm LV Diastolic Volume MOD 2C 75.8 cm??? LV Systolic Volume MOD 2C 32.1 cm??? LV Ejection Fraction MOD 2C 57.7 % LV Cardiac Index MOD 2C 1919.8 cm???/min???m??? LV Diastolic Length 2C 6.7 cm LV Systolic Length 2C 5.9 cm LA Volume 50.8 cm??? 18 - 58 / 22 - 52 cm??? LA Volume Index 25.9 cm???/m??? 16 - 28 cm???/m??? M-MODE Aortic Root Diameter MM 2.9 cm AV Cusp Separation MM 2.2 cm DOPPLER AV Peak Velocity 229.1 cm/s AV Peak Gradient 21.0 mmHg AV Mean Velocity 147.9 cm/s AV Mean Gradient 9.8 mmHg AV Velocity Time Integral 42.8 cm LVOT Peak Velocity 118.8 cm/s LVOT Peak Gradient 5.6 mmHg LVOT Velocity Time Integral 23.8 cm LVOT Stroke Volume 97.0 cm??? LVOT Stroke Volume Index 51.3 ml/m??? LVOT Cardiac Index 4254.7 cm???/min???m??? AV Area Cont Eq vti 2.3 cm??? AV Area Cont Eq pk 2.1 cm??? MV Area PHT 4.1 cm??? Mitral E Point Velocity 93.3 cm/s Mitral A Point Velocity 98.9 cm/s Mitral E to A Ratio 0.9 MV Deceleration Time 186.2 ms TR Peak Velocity 280.2 cm/s TR Peak Gradient 31.4 mmHg Right Ventricular Systolic Press 36.4 mmHg FINDINGS Left Ventricle Left ventricular ejection fraction is estimated at 55-60 %. Left ventricular cavity size normal. Mild concentric left ventricular hypertrophy. Right Ventricle Mild right ventricular dilatation. Mild pulmonary hypertension. Right Atrium Normal right atrial size. No right atrial thrombus or mass seen. Left Atrium Normal left atrial size. No left atrial thrombus or mass present. Mitral Valve Mitral valve thickened. Trace mitral regurgitation. Mitral annular calcification. Aortic Valve Aortic valve sclerosis. Mild aortic stenosis with a peak gradient of 21 mmHg and a mean gradient of 10 mmHg. Tricuspid Valve Structurally normal tricuspid valve. Mild tricuspid regurgitation. Pulmonic Valve Pulmonic valve not well visualized. No pulmonic regurgitation. Pericardium No pericardial or pleural effusion. Aorta Normal size aortic root and proximal ascending aorta. CONCLUSIONS Left ventricular ejection fraction is estimated at 55-60 %. Mild concentric left ventricular hypertrophy. No obvious regional wall motion abnormality Mild RV dilatation, RVSP 36 mmHg Mild aortic stenosis, mean gradient 10 mmHg, trileaflet calcific aortic valve Mitral annular calcification. Mild TR,. Previewed by: Dr Júnior Gaxiola (Electronically Signed) Final Date: 25 March 2024 09:55
== END | disposition home or self-care (01) ==
LOC: RADECHMAIN 15:34
PROVIDERS: ATTEND Family Medicine
DX: I35.0 Nonrheumatic aortic (valve) stenosis (principal); I07.1 Rheumatic tricuspid insufficiency; I34.0 Nonrheumatic mitral (valve) insufficiency; I27.20 Pulmonary hypertension, unspecified
CPT/HCPCS: 93306

== ENCOUNTER → 2024-08-31 | Outpatient (CLI) | payer MEDICARE, OTHER ==
[2024-08-31 07:40] LABS: African American GFR (CKD) >90 (>60 ml/min/1.73 sqM); Blood Urea Nitrogen 22 mg/dL (9-20); Non-African American GFR(CKD) 88 (>60 ml/min/1.73 sqM)
--- NOTE | 2024-08-31 09:14 | CT ---
EXAMINATION TYPE: CT angio neck DATE OF EXAM: 08/31/2024 8:28 AM COMPARISON: None. CLINICAL INDICATION: Male, 69 years old with history of I65.29 OCCLUSION AND STENOSIS OF UNSPECIFIED CAROT, right neck swelling, TECHNIQUE: Axially acquired helical CT Angiogram of the Neck was obtained with and without contrast. Axial images are supplemented with coronal and sagittal MIP reconstructions. 3D reconstructions were also performed and were post-processed at an independent workstation. Estimated carotid stenosis was calculated using the NASCET criteria. IV CONTRAST: with IV Contrast, patient injected with 65 mL of Isovue 370. (None if empty) CT DLP: 348.7 mGycm, Automated exposure control for dose reduction was used. FINDINGS: Right carotid system: There is a stent noted involving the proximal right ICA. The lumen measures 7.6 mm at the proximal extent of the stent while at its midportion measures 2.9 mm and distally 5.8 mm. The stent is patent. ECA is patent. Right vertebral artery appears unremarkable. Left carotid system: Mild plaque is seen of the left common carotid artery. There is calcified plaqu e also noted at the carotid bulb and proximal left ICA. Estimated diameter reduction is 50%-60%. E CA is patent. Left vertebral artery appears unremarkable. IMPRESSION: 1. There is a stent noted involving the proximal right ICA. The lumen measures 7.6 mm at the proxima l extent of the stent while at its midportion measures 2.9 mm and distally 5.8 mm. The stent is paten t. 2. Estimated diameter reduction Left ICA 50-60% [facility], , 08/31/2024 9:12 AM
== END | disposition home or self-care (01) ==
LOC: RADCTMAIN 07:00
PROVIDERS: ATTEND Internal Medicine Interventional Cardiology
DX: I65.22 Occlusion and stenosis of left carotid artery (principal); Z95.828 Presence of other vascular implants and grafts
CPT/HCPCS: 82565; 84520; 70498; 36415; Q9967